=== PATIENT | male | born 1940 | race Caucasian/White ===

== ENCOUNTER → 2024-01-18 13:09 | Outpatient (CLI) | payer OTHER, SELFPAY ==
--- NOTE | 2024-01-18 13:10 | DI.RAD.S_ITS ---
PROCEDURE: XR CHEST 2V INDICATIONS: Cough TECHNIQUE: 2 views of the chest were acquired. COMPARISON: None. FINDINGS: Surgical changes and devices: None. Lungs and pleura: Lungs are clear. No pleural effusions or pneumothorax. Mediastinum: Mediastinal contours are normal. Heart size is normal. Bones and chest wall: No suspicious bony abnormalities. Soft tissues appear unremarkable. IMPRESSION: No acute cardiopulmonary pathology. Dictated by: Americo Rios M.D. on 01/18/2024 at 15:35 Approved by: Americo Rios M.D. on 01/18/2024 at 15:35
== END ==
PROVIDERS: Referring Provider Nurse Practitioner Family; Visit Provider Nurse Practitioner Family
DX: R05.9 Cough, unspecified (principal)
CPT/HCPCS: 71046

== ENCOUNTER → 2025-03-08 14:18 | Outpatient (CLI) | payer OTHER, SELFPAY ==
[2025-03-08 15:13] LABS: Add Manual Diff / Slide Review NO; Basophils Absolute Auto 0 /uL (0-100); Basophils Percent Auto 0.7 % (0-2); Eosinophils Absolute Auto 300 /uL (0-450); Hematocrit 40.2 % (41-53); Hemoglobin 13.4 g/dL (13.5-17.5); Lymphocytes Absolute Auto 1500 /uL (1100-4500); Lymphocytes Percent Auto 22.5 % (25-40); Mean Corpuscular HGB Conc 33.2 % (30-36); Mean Corpuscular Hemoglobin 32.4 PG (26-34); Mean Corpuscular Volume 97.7 fL (80-100); Monocytes Absolute Auto 700 /uL (0-900); Monocytes Percent Auto 10.3 % (3-14); Neutrophils Absolute Auto 4200 /uL (1500-7000); Neutrophils Percent Auto 62.5 % (50-75); Platelet Count 181 X10^3/uL (150-400); Red Blood Cell Count 4.12 X10^6/uL (4.5-5.9); Red Cell Distribution Width 13.5 % (11.6-14.8); White Blood Cell Count 6.7 X10^3/uL (4.5-11.0)
[2025-03-08 15:34] LABS: Alanine Aminotransferase 24 IU/L (<50); Albumin 4.2 g/dL (3.5-5.0); Albumin Globulin Ratio 1.6 (1.0-2.8); Alkaline Phosphatase 75 U/L (38-126); Aspartate Aminotransferase 41 IU/L (17-59); BUN Creatinine Ratio 27.7 (6-22); Blood Urea Nitrogen 28 mg/dL (9-20); Calcium 9.2 mg/dL (8.4-10.2); Carbon Dioxide 28 mmol/L (22-32); Chloride 102 mmol/L (98-107); Cholesterol 152 mg/dL (140-199); Estimated Glomerular Filt Rate > 60 mL/min (>60); Globulin 2.6 g/dL (1.7-4.1); Glucose 80 mg/dL (70-99); HDL Cholesterol 85 mg/dL (40-60); LDL Cholesterol Calculated 53 mg/dL (<100); Potassium 4.7 mmol/L (3.4-5.1); Sodium 137 mmol/L (137-145); Total Protein 6.8 g/dL (6.3-8.2); Triglycerides 72 mg/dL (35-150)
[2025-03-08 15:35] LABS: HEMOLYSIS < 15 (0-50)
[2025-03-08 16:07] LABS: Prostate Specific Antigen Scrn 0.319 ng/mL (0.1-4.0)
== END ==
PROVIDERS: PCP Family Medicine; Referring Provider Family Medicine; Visit Provider Family Medicine
DX: I25.10 Atherosclerotic heart disease of native coronary artery without angina pectoris (principal); Z12.5 Encounter for screening for malignant neoplasm of prostate; I10 Essential (primary) hypertension
CPT/HCPCS: 36415; 80053; 80061; 85025; G0103

== ENCOUNTER 2025-04-10 17:42 | Emergency (ER) | payer OTHER, SELFPAY ==
[2025-04-10] VITALS (12 sets, daily range): BP systolic 159–183; BP diastolic 74–101; PULSE 53–61; RESP 16–18; TEMP 37.4; O2SAT 92–99; BMI 23.7
--- NOTE | 2025-04-10 19:10 | PC.NURSE ---
patient reports urine color brownish a few times this week.
[2025-04-10 19:13] LABS: Add Manual Diff / Slide Review NO; Hematocrit 42.3 % (41-53); Hemoglobin 14.1 g/dL (13.5-17.5); Lymphocytes Absolute Auto 1500 /uL (1100-4500); Mean Corpuscular HGB Conc 33.4 % (30-36); Mean Corpuscular Hemoglobin 32.8 PG (26-34); Mean Corpuscular Volume 98.4 fL (80-100); Platelet Count 186 X10^3/uL (150-400)
[2025-04-10 19:16] LABS: Alanine Aminotransferase 30 IU/L (<50); Albumin 4.2 g/dL (3.5-5.0); Albumin Globulin Ratio 1.4 (1.0-2.8); Alkaline Phosphatase 73 U/L (38-126); Blood Urea Nitrogen 29 mg/dL (9-20); Calcium 9.0 mg/dL (8.4-10.2); Carbon Dioxide 29 mmol/L (22-32); Chloride 102 mmol/L (98-107); Estimated Glomerular Filt Rate 54 mL/min (>60); Globulin 3.1 g/dL (1.7-4.1); Glucose 112 mg/dL (70-99); HEMOLYSIS < 15 (0-50); Lipase 468 U/L (23-300); Potassium 4.3 mmol/L (3.4-5.1); Sodium 137 mmol/L (137-145); Total Protein 7.3 g/dL (6.3-8.2)
--- NOTE | 2025-04-10 20:09 | ED.ABDPAIN ---
HPI - Abdominal Pain General Chief Complaint: Urogenital-Male Stated Complaint: Lower Back Pain, LRQ Pain, N/V Time Seen by Provider: 04/10/25 20:08 Source: patient Mode of arrival: Ambulatory History of Present Illness HPI narrative: Patient is a 85-year-old male with a past medical history of hyperlipidemia, BPH, CAD AFib with pacemaker on Eliquis, comes into the ED from home for evaluation of right-sided flank and abdominal pain, states it started at around 4:00 a.m. this morning. States that since then he has been having some nausea and vomiting, as well as some dark urine. Patient denies any trauma or falls. Denies any other symptoms such as headache visual disturbances chest pain shortness breath fever chills or any other GI/ symptoms time. Related Data Home Medications ?Medication ?Instructions ?Recorded ?Confirmed aspirin 81 mg tablet,delayed 81 mg PO QDAY ##0 08/03/12 03/08/25 release apixaban 5 mg tablet (Eliquis) 5 mg PO BID 03/08/25 03/08/25 atorvastatin 80 mg tablet 80 mg PO DAILY 03/08/25 03/08/25 Previous Rx's ?Medication ?Instructions ?Recorded finasteride 5 mg tablet 5 mg PO QDAY #90 tabs 09/06/16 nitroglycerin 0.4 mg sublingual 0 sublingual PRN PRN ##1 10/25/16 tablet (Nitrostat) lisinopril 10 1 tab PO QDAY #90 tabs 02/08/17 mg-hydrochlorothiazide 12.5 mg tablet (Zestoretic) cephalexin 500 mg capsule 500 mg PO TID 7 days #21 caps 04/10/25 ondansetron 4 mg disintegrating 4 mg PO Q8H PRN nausea and 04/10/25 tablet vomiting 1 week #21 tabs oxycodone-acetaminophen 5 mg-325 1 tab PO Q8H PRN pain 3 days #9 04/10/25 mg tablet (Percocet) tabs tamsulosin 0.4 mg capsule (Flomax) 0.4 mg PO DAILY 1 week #7 caps 04/10/25 Allergies Allergy/AdvReac Type Severity Reaction Status Date / Time iodine Allergy Mild SWELLING Verified 04/10/25 20:15 WASP/YELLOW JACKET Allergy Intermediate SWELLING Uncoded 04/10/25 20:15 BEESSWELLING OVER ARMS/LEGS Review of Systems Review of Systems Narrative: General: Denies fever, chills, weight loss HEENT: Denies headache, eye drainage, eye irritation, head trauma, sore throat, voice change Cardiovascular: Denies any chest pain, palpitations, tachycardia Respiratory: Denies any shortness of breath, cough, wheeze, stridor GI/: Positive right lower quadrant abdominal pain, right-sided flank nausea, vomiting, denies diarrhea, bright red blood per rectum, melanotic stools, urinary frequency, urinary retention, dysuria, hematuria MSK: Denies any joint pain, muscle pains, swelling Skin: Denies any rashes, lesions, discoloration Neuro: Denies any headache, lightheadedness, dizziness, fainting, weakness Psych: Denies SI/HI Patient History Social History Smoking Status: Never smoker Smoking Status: Never smoker Exam Narrative Exam Narrative: General: Cooperative, well-developed, not in acute distress HEENT: Normocephalic, atraumatic, PERRLA, normal sclera, eyelids normal Neck: Active full range of motion, atraumatic Chest: Normal to inspection, negative crepitus, no overlying erythema ecchymosis Respiratory: Normal respiratory effort, not in acute respiratory distress, clear to auscultation bilaterally negative cough, wheeze, tachypnea, rhonchi, rales Cardiology: Regular rate rhythm negative gallop, murmur, rubs GI/: No tenderness to palpation, soft, non rigid, normal to inspection, exam deferred MSK: Full active range of motion in all 4 extremities, atraumatic, no tenderness to palpation of any bony prominences Skin: No rashes or lesions noted Neuro: Alert awake oriented x3, moves all 4 extremities spontaneously, cranial nerves intact, able to answer all questions appropriately follows commands appropriately Psych: Cooperative, negative suicidal or homicidal ideations Initial Vital Signs Initial Vital Signs: Vital Signs Temperature 99.3 F 04/10/25 17:48 Pulse Rate 57 L 04/10/25 17:48 Respiratory Rate 16 04/10/25 17:48 Blood Pressure 183/81 H 04/10/25 17:48 Pulse Oximetry 99 04/10/25 17:48 Oxygen Delivery Method Room Air 04/10/25 17:48 Course Orders Ordered: ED Orders 04/10/25 18:20 Complete Blood Count AUTO DIFF Stat Comprehensive Metabolic Panel Stat Lipase Stat 04/10/25 19:36 Urinalysis Screen (Dip Only) Stat 04/10/25 19:38 Urine Culture Stat Urine Microscopic Stat 04/10/25 20:21 CT abdomen pelvis wo con Stat Discontinued Medications Sodium Chloride (Normal Saline 0.9%) 1,000 mls @ 1,000 mls/hr IV BOLUS ONE Stop: 04/10/25 21:08 Last Admin: 04/10/25 20:16 Dose: 1,000 mls/hr Documented By: IRVIN Morphine Sulfate (Morphine 4 Mg/Ml Inj) 4 mg IV NOW ONE Stop: 04/10/25 20:24 Last Admin: 04/10/25 20:29 Dose: 4 mg Documented By: SHRUTHI Ondansetron HCl (Ondansetron 4 Mg/2 Ml Inj) 4 mg IV NOW ONE Stop: 04/10/25 20:24 Last Admin: 04/10/25 20:29 Dose: 4 mg Documented By: SHRUTHI Vital Signs Vital signs: Vital Signs - 8 hr 04/10/25 17:48 04/10/25 18:24 04/10/25 18:30 Temperature 99.3 F Pulse Rate 57 L 55 L 60 Respiratory Rate 16 Blood Pressure 183/81 H Pulse Oximetry 99 99 97 Oxygen Delivery Method Room Air 04/10/25 19:00 04/10/25 19:12 04/10/25 19:12 Temperature Pulse Rate 55 L 53 L Respiratory Rate Blood Pressure 171/81 H Pulse Oximetry 97 99 Oxygen Delivery Method MDM - Abdominal Pain Differential Diagnosis Differential diagnosis: Likely abdominal pain, acute appendicitis, calculus of kidney, diverticulitis, gastroenteritis and other (Urinary tract infection, pyelonephritis) Lab Data 04/10/25 18:20 04/10/25 18:20 Labs: Lab Results 04/10/25 04/10/25 Range/Units 18:20 19:38 WBC 10.4 (4.5-11.0) X10^3/uL RBC 4.30 L (4.5-5.9) X10^6/uL Hgb 14.1 (13.5-17.5) g/dL Hct 42.3 (41-53) % MCV 98.4 (80-100) fL MCH 32.8 (26-34) PG MCHC 33.4 (30-36) % RDW 13.3 (11.6-14.8) % Plt Count 186 (150-400) X10^3/uL Neut % (Auto) 73.4 (50-75) % Lymph % (Auto) 14.0 L (25-40) % Ware % (Auto) 10.0 (3-14) % Eos % (Auto) 2.2 (2-4) % Baso % (Auto) 0.4 (0-2) % Neut # (Auto) 7600 H (7569-7381) /uL Lymph # (Auto) 1500 (4502-8233) /uL Ware # (Auto) 1000 H (0-900) /uL Eos # (Auto) 200 (0-450) /uL Baso # (Auto) 0 (0-100) /uL Sodium 137 (137-145) mmol/L Potassium 4.3 (3.4-5.1) mmol/L Chloride 102 (98-107) mmol/L Carbon Dioxide 29 (22-32) mmol/L BUN 29 H (9-20) mg/dL Creatinine 1.30 H (0.66-1.25) mg/dL Estimated GFR 54 L (>60) mL/min BUN/Creatinine Ratio 22.3 H (6-22) Glucose 112 H (70-99) mg/dL Calcium 9.0 (8.4-10.2) mg/dL Total Bilirubin 0.6 (0.2-1.3) mg/dL AST 40 (17-59) IU/L ALT 30 (<50) IU/L Alkaline Phosphatase 73 (38-126) U/L Total Protein 7.3 (6.3-8.2) g/dL Albumin 4.2 (3.5-5.0) g/dL Globulin 3.1 (1.7-4.1) g/dL Albumin/Globulin Ratio 1.4 (1.0-2.8) Lipase 468 H (23-300) U/L Urine RBC 30-100/hpf H (0-5/HPF) Urine WBC 1-5/hpf (0-5/HPF) Ur Squamous Epith Cells 0-1 /hpf (0-5/HPF) Urine Bacteria Occasional (0-1) (None) Vol Urine Centrifuged 10ml (spun) Point of care testing: Urine Dip Bedside Urine Glucose Negative Bedside Urine Bilirubin - Negative Bedside Urine Ketone - Negative Urine Specific [place] 1.020 Bedside Urine Occult Blood +++ Bedside Urine pH 6 Bedside Urine Protein + 30 Bedside Urine Urobilinogen - Negative Bedside Urine Nitrite - Negative Bedside Urine Leukocytes + [address] scan - abdomen/pelvis: Radiologist's Impression: [address] [address] [address] Scan Report Signed Patient: Viet Funes MR#: [id number] : 1940 Acct:[id number] Age/Sex: 85 / M Date of Service: 04/10/25 Loc: ED Accession Number: [id number] Procedure: CT abdomen pelvis wo con Ordering Provider: Devon Antonio D.O. PROCEDURE: CT ABDOMEN PELVIS WO CON INDICATIONS: Right flank pain and rlq abd pain TECHNIQUE: CT of the abdomen and pelvis was obtained without intravenous contrast. Coronal and sagittal reformats were performed. For radiation dose reduction, the following was used: automated exposure control, adjustment of mA and/or kV according to patient size. COMPARISON: None. FINDINGS: Image quality: Diagnostic. Lower Chest: No significant findings. ABDOMEN: Liver: No contour-deforming mass. Gallbladder: No radiopaque gallstones or wall thickening. Biliary ducts: No biliary dilation. Pancreas: No ductal dilation. Spleen: Size is within normal limits. Adrenal Glands: No adrenal nodules. Kidneys and Ureters: Obstructing 4 mm stone in the proximal right ureter, resulting in moderate hydronephrosis, perinephric fat stranding. Moderate burden of bilateral nonobstructing nephrolithiasis, punctate on the left and measuring up to 1 cm on the right. Stomach and Bowel: Normal colonic caliber, without significant wall thickening. Colonic diverticulosis without evidence of diverticulitis. Peritoneum: No abnormal intraperitoneal fluid. No free air. Ventral Wall: No significant hernia. Abdominal Nodes: No retroperitoneal or mesenteric adenopathy by size criteria. Vessels: Aorta and inferior vena cava are normal in size. PELVIS: Pelvic Organs: Unremarkable. Bladder: Unremarkable. Pelvic Nodes: No enlarged lymph nodes. Miscellaneous: No inguinal hernias are seen. Bones: No aggressive osseous abnormality. Osteoporosis by Hounsfield units criteria. Degenerative disc disease of the lumbar spine. IMPRESSION: 4 mm obstructing stone in the proximal right ureter, resulting in moderate right-sided hydronephrosis, perinephric fat stranding. Additional moderate burden of bilateral nonobstructing nephrolithiasis. MDM Narrative Medical decision making narrative: Patient is a 85-year-old male past medical history of AFib with pacemaker on Eliquis, hypertension, BPH, hyperlipidemia presenting for right-sided flank pain and abdominal pain, he states that this all started 4:00 a.m. today. States it started to his right flank and then radiated to his right abdomen. Nothing making it better or worse, states he does have a history of kidney stones 15 years ago. He denies any other symptoms at this time. Patient's CT scan does show a 4 mm stone to the right proximal ureter. Patient without any leukocytosis, patient's creatinine only slightly elevated at 1.30, urinalysis not consistent with acute urinary tract infection, patient will be treated for urolithiasis, we will be discharged home with oral antibiotics analgesics antiemetics and Flomax. He was instructed follow up with Urology in outpatient setting, he was given strict return precautions he verbalized understanding of this and agrees to being discharged home with outpatient follow up Discharge Plan Departure Patient Disposition: Home Clinical Impression: Urolithiasis Instructions: DI for Kidney Stones Activity Restrictions/Additional Instructions: Please follow up with Urology and your primary care doctor in outpatient setting Please return to the emergency department immediately if you start developing a fever, or if the pain becomes unbearable and uncontrolled after taking the medications you were discharged home with Please read the discharge instructions sheet carefully and bring all papers to all doctor follow-up visits, as it may contain information that your doctor may want to see. Disease processes change and evolve, if your symptoms worsen or if you develop any new symptoms that are concerning to you please return for evaluation. Your evaluation today does not show any evidence of any life-threatening/serious illnesses requiring admission to the hospital or surgery. Please follow-up with your doctor for re-evaluation in approximately 1 day. Seek immediate medical attention for any worrisome symptoms. *If you do not have a primary care provider please contact the [facility] Resource line at [phone]. They will ask some questions about your medical history and help get you set up with a doctor in the community. Prescriptions: New tamsulosin [Flomax] 0.4 mg capsule 0.4 mg PO DAILY 7 Days Qty: 7 0RF oxycodone-acetaminophen [Percocet] 5-325 mg tablet 1 tab PO Q8H PRN (Reason: pain) 3 Days Qty: 9 0RF cephalexin 500 mg capsule 500 mg PO TID 7 Days Qty: 21 0RF ondansetron 4 mg tablet,disintegrating 4 mg PO Q8H PRN (Reason: nausea and vomiting) 7 Days Qty: 21 0RF No Action aspirin 81 MG tablet,delayed release (DR/EC) 81 mg PO QDAY Qty: 0 finasteride 5 MG tablet 5 mg PO QDAY Qty: 90 2RF nitroglycerin [Nitrostat] 0.4 MG tablet, sublingual 0 Sublingual PRN PRNQty: 1 0RF lisinopril-hydrochlorothiazide [Zestoretic] 10 MG/12.5 MG tablet 1 tab PO QDAY Qty: 90 1RF Eliquis 5 mg tablet 5 mg PO BID atorvastatin 80 mg tablet 80 mg PO DAILY Referrals: Howard Rivas DO [Primary Care Provider, Family Practice] Stand Alone Forms: Patient Portal/API
[2025-04-10] MEDS: SODIUM CHLORIDE 0.9% 1,000 ML 1000 ML IV (20:16)
--- NOTE | 2025-04-10 20:21 | DI.CT.S_ITS ---
PROCEDURE: CT ABDOMEN PELVIS WO CON INDICATIONS: Right flank pain and rlq abd pain TECHNIQUE: CT of the abdomen and pelvis was obtained without intravenous contrast. Coronal and sagittal reformats were performed. For radiation dose reduction, the following was used: automated exposure control, adjustment of mA and/or kV according to patient size. COMPARISON: None. FINDINGS: Image quality: Diagnostic. Lower Chest: No significant findings. ABDOMEN: Liver: No contour-deforming mass. Gallbladder: No radiopaque gallstones or wall thickening. Biliary ducts: No biliary dilation. Pancreas: No ductal dilation. Spleen: Size is within normal limits. Adrenal Glands: No adrenal nodules. Kidneys and Ureters: Obstructing 4 mm stone in the proximal right ureter, resulting in moderate hydronephrosis, perinephric fat stranding. Moderate burden of bilateral nonobstructing nephrolithiasis, punctate on the left and measuring up to 1 cm on the right. Stomach and Bowel: Normal colonic caliber, without significant wall thickening. Colonic diverticulosis without evidence of diverticulitis. Peritoneum: No abnormal intraperitoneal fluid. No free air. Ventral Wall: No significant hernia. Abdominal Nodes: No retroperitoneal or mesenteric adenopathy by size criteria. Vessels: Aorta and inferior vena cava are normal in size. PELVIS: Pelvic Organs: Unremarkable. Bladder: Unremarkable. Pelvic Nodes: No enlarged lymph nodes. Miscellaneous: No inguinal hernias are seen. Bones: No aggressive osseous abnormality. Osteoporosis by Hounsfield units criteria. Degenerative disc disease of the lumbar spine. IMPRESSION: 4 mm obstructing stone in the proximal right ureter, resulting in moderate right-sided hydronephrosis, perinephric fat stranding. Additional moderate burden of bilateral nonobstructing nephrolithiasis. Dictated by: Charles Servin M.D. on 04/10/2025 at 21:21 Approved by: Charles Servin M.D. on 04/10/2025 at 21:24
[2025-04-10] MEDS: ONDANSETRON 4 MG/2 ML INJ IV (20:29)
[2025-04-10] MEDS: MORPHINE 4 MG/ML INJ IV (20:29)
[2025-04-10] MEDS: TAMSULOSIN 0.4 MG CAPSULE PO (21:53)
[2025-04-10] MEDS: ONDANSETRON 4 MG ODT PREPACK 1 BOTTLE MISC (21:53)
[2025-04-10] MEDS: OXYCODONE/APAP 5/325 PREPACK 1 BOTTLE MISC (21:53)
== END 2025-04-10 22:07 | disposition home or self-care (01) ==
PROVIDERS: Emergency Provider Student in an Organized Health Care Education/Training Program; PCP Family Medicine
DX: N20.9 Urinary calculus, unspecified (principal); Z87.442 Personal history of urinary calculi; R10.9 Unspecified abdominal pain; R11.2 Nausea with vomiting, unspecified
CPT/HCPCS: 36415; 74176; 80053; 81003; 81015; 83690; 85025; 87086; 96361; 96374; 96375; 99284; J2270; J2405

== ENCOUNTER → 2025-07-04 11:00 | Outpatient (CLI) | payer OTHER, SELFPAY ==
[2025-07-04 12:55] LABS: Blood Urea Nitrogen 28 mg/dL (9-20); Calcium 8.9 mg/dL (8.4-10.2); Carbon Dioxide 26 mmol/L (22-32); Chloride 105 mmol/L (98-107); Estimated Glomerular Filt Rate 55 mL/min (>60); Glucose 112 mg/dL (70-99); HEMOLYSIS < 15 (0-50); Potassium 5.0 mmol/L (3.4-5.1); Sodium 137 mmol/L (137-145)
== END ==
PROVIDERS: PCP Family Medicine; Referring Provider Physician Assistant; Visit Provider Physician Assistant
DX: N17.9 Acute kidney failure, unspecified (principal)
CPT/HCPCS: 36415; 80048